=== PATIENT | female | born 1985 | race Caucasian/White ===

== ENCOUNTER 2018-07-23 17:34 | Emergency (ER) | payer OTHER ==
[~2018-07-23] VITALS: Ht 147.3 cm; Wt 59.0 kg
[2018-07-23] MEDS ORDERED: SUBOXONE 8 MG-1 EAC1 SL (17:52)
[2018-07-23] MEDS ORDERED: TYLENOL WITH C1 EACH PO (18:27)
[2018-07-23] MEDS ORDERED: BACTRIM DS TAB1 EACH PO (18:27)
[2018-07-23] MEDS ORDERED: ZOFRAN4 MG PO (18:46)
--- OUTSIDE RECORDS SUMMARY | 2018-07-23 19:36 | XMS ---
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 Teresa VISIT COUNT (12 MO.) 1 JUDD Balbuena TOTAL 1 NOTE: Visits indicate total known visits. ED/UCC VISIT TRACKING (12 MO.) 07/23/2018 17:35 JUDD Akhtar OR TYPE: Emergency COMPLAINT: - VOMITING, URINE PROBLEM INPATIENT VISIT TRACKING (12 MO.) No inpatient visits to display in this time frame [email or web address]
== END 2018-07-23 19:25 | disposition home or self-care (01) ==
LOC: ED 17:34
DX: N39.0 Urinary tract infection, site not specified (principal); Z88.1 Allergy status to other antibiotic agents; Z90.89 Acquired absence of other organs; Z87.891 Personal history of nicotine dependence
CPT/HCPCS: 81001; 96372; 99284-25; J0696